=== PATIENT | female | born 1990 | race Caucasian/White ===

== ENCOUNTER 2016-10-01 15:19 | Emergency (ER) | payer BC ==
--- NOTE | 2016-10-01 17:19 | ED ORDER SUMMARY ---
..... Patient: RENEA GUTIÉRREZ OrderSheet [facility] VisitID: [id number] [address] [place] [address] 26y, F Registration Date/Time: 10/01/2016 ORDER SHEET Weight: 79.3 kg (stated) Allergies: Codeine GENERAL ORDERS: CBC w Diff Urgent (15:25 10/01/2016 EKoroleva P.A.-C) (Ack 15:29 NHouse ER Tech1) (15:42 KPage-Kuchan R.N.) CMP Urgent (15:25 10/01/2016 EKoroleva P.A.-C) (Ack 15:29 NHouse ER Tech1) (15:42 KPage-Kuchan R.N.) UA-Culture if indicated Urgent (15:10/01/2016 EKoroleva P.A.-C) (Ack 15:29 NHouse ER Tech1) (16:53 KPage-Kuchan R.N.) Urine Urgent (15:25 10/01/2016 EKoroleva P.A.-C) (Ack 15:29 NHouse ER Tech1) (16:53 KPage-Kuchan R.N.) MEDICATION ORDERS: KCl PO 20 meq (NOW) (16:10 10/01/2016 EKoroleva P.A.-C) (Ack 16:53 KPage-Kuchan R.N.) (17:56 KPage-Kuchan R.N.) IV FLUIDS: Zofran IV 4 mg (NOW) (15:24 10/01/2016 EKoroleva P.A.-C) (Cancelled: Other15:25 EKoroleva P.A.-C) IV Saline Lock (15:10/01/2016 EKoroleva P.A.-C) (15:54 KPage-Kuchan R.N.) Reglan IV 10 mg (NOW) (15:10/01/2016 EKoroleva P.A.-C) (15:52 KPage-Kuchan R.N.) Toradol IV 30 mg (NOW) (15:25 10/01/2016 EKoroleva P.A.-C) (15:53 Mark R.N.) Dilaudid IV 1 mg (HIGH ALERT MEDICATION, NOW) (15:25 10/01/2016 Ethan Ball.A.-C) (15:53 KPaTommie R.N.) Zofran IV 8 mg (NOW) (15:28 10/01/2016 Ethan Ball.Lizandro.-C) (15:52 KPaTommie R.N.) Dilaudid IV 1 mg (HIGH ALERT MEDICATION, NOW) (17:19 10/01/2016 Ethan Ball.A.-C) (17:56 KPaTommie R.N.) ORDER SHEET NOTES: [Electronically signed by Jaylyn Mccallum P.A.-C (18:41 10/01/2016)] [Electronically signed by Nemo Diaz R.N. (23:21 10/01/2016)] [Electronically locked/signed by Nemo Diaz R.N. (23:21 10/01/2016)]
--- NOTE | 2016-10-01 17:19 | ED ORDER SUMMARY ---
..... Patient: RENEA GUTIÉRREZ OrderSheet [facility] VisitID: [id number] [address] [place] [address] 26y, F Registration Date/Time: 10/01/2016 ORDER SHEET Weight: 79.3 kg (stated) Allergies: Codeine GENERAL ORDERS: CBC w Diff Urgent (15:25 10/01/2016 EKoroleva P.A.-C) (Ack 15:29 NHouse ER Tech1) (15:42 KPage-Kuchan R.N.) CMP Urgent (15:25 10/01/2016 EKoroleva P.A.-C) (Ack 15:29 NHouse ER Tech1) (15:42 KPage-Kuchan R.N.) UA-Culture if indicated Urgent (15:10/01/2016 EKoroleva P.A.-C) (Ack 15:29 NHouse ER Tech1) (16:53 KPage-Kuchan R.N.) Urine Urgent (15:25 10/01/2016 EKoroleva P.A.-C) (Ack 15:29 NHouse ER Tech1) (16:53 KPage-Kuchan R.N.) MEDICATION ORDERS: KCl PO 20 meq (NOW) (16:10 10/01/2016 EKoroleva P.A.-C) (Ack 16:53 KPage-Kuchan R.N.) (17:56 KPage-Kuchan R.N.) IV FLUIDS: Zofran IV 4 mg (NOW) (15:24 10/01/2016 EKoroleva P.A.-C) (Cancelled: Other15:25 EKoroleva P.A.-C) IV Saline Lock (15:10/01/2016 EKoroleva P.A.-C) (15:54 KPage-Kuchan R.N.) Reglan IV 10 mg (NOW) (15:10/01/2016 EKoroleva P.A.-C) (15:52 KPage-Kuchan R.N.) Toradol IV 30 mg (NOW) (15:25 10/01/2016 EKoroleva P.A.-C) (15:53 Mark R.N.) Dilaudid IV 1 mg (HIGH ALERT MEDICATION, NOW) (15:25 10/01/2016 Ethan Ball.A.-C) (15:53 KPaTommie R.N.) Zofran IV 8 mg (NOW) (15:28 10/01/2016 Ethan Ball.Lizandro.-C) (15:52 KPaTommie R.N.) Dilaudid IV 1 mg (HIGH ALERT MEDICATION, NOW) (17:19 10/01/2016 Ethan Ball.A.-C) (17:56 KPaTommie R.N.) ORDER SHEET NOTES: [Electronically signed by Jaylyn Mccallum P.A.-C (18:41 10/01/2016)] [Electronically signed by Nemo Diaz R.N. (23:21 10/01/2016)] [Electronically locked/signed by Nemo Diaz R.N. (23:21 10/01/2016)]
--- NOTE | 2016-10-01 17:19 | ED NURSING NOTES ---
Clinical Report - Nurses [facility] [address] [place] [address] 10/01/2016 15:20 Patient: RENEA GUTIÉRREZ TRIAGE Triage time 15:Oct 01 2016. Chief Complaint: (pt reports hx of renal stones, sudden onset of left flank pain at 1300 today, pt with emesis upon presentation). Alert. SEPSIS SCREEN: Sepsis Screen. Negative (no infection suspected/documented). --15:28 Nemo Diaz R.N. 15:24 10/01/16. BP: 130/63. HR: 52. RR: 19. O2 saturation: 100%. Temp: 97.8 F. Pain level now: 02/18. --15:28 Nemo Diaz R.N. Weight: 79.3 kg stated. Height/Length: 68 inches Per Patient. BMI: 26.6. --15:27 Nemo Diza R.N. Medications Oxycodone-Acetaminophen Oral. --15:26 Nemo Diaz R.N. Control Pills. --15:26 Nemo Diaz R.N. Zofran Oral. --15:26 Nemo Diaz R.N. Medication/allergy information source: the patient. --15:28 Nemo Diaz R.N. Allergies Codeine. --15:29 Nemo Diaz R.N. The following entry was struck by Nemo Diaz R.N., 15:29 (10/01/16) Reason - other. <<STRICKEN ENTRY-- No Known Drug Allergy. --15:26 Nemo Diaz R.N. --END STRIKE>>. History Arrived by private vehicle. Historian: patient. Accompanied by friend. Onset. (1300 PM). She has had nausea and vomiting. 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 PAST MEDICAL HX: Last normal menstrual period- now. SOCIAL HX: Never smoker. No alcohol use or drug use. 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 ABUSE ASSESSMENT: No report of abuse. SELF HARM ASSESSMENT: A self harm assessment was performed. The patient answered "no" to the question "Do you have thoughts of harming or killing yourself?". FALL RISK ASSESSMENT: Fall risk assessment completed. No fall risk identified. NUTRITIONAL RISK ASSESSMENT: The nutritional risk assessment revealed no deficiencies. FUNCTIONAL ASSESSMENT: Functional assessment: no impairments noted. LEARNING NEEDS ASSESSMENT: The learning needs assessment revealed no barriers. SKIN INTEGRITY ASSESSMENT: Skin integrity risk assessment completed. No skin integrity risk identified. --15:28 Nemo Diaz R.N. PROBLEMS: Ureterolithiasis. Renal Colic. --15:26 Nemo Diaz R.N. ADDITIONAL SURGERIES: Adenoidectomy. Foot fx repair. Tonsillectomy. --15:26 Nemo Diaz R.N. Interventions ID band on patient. --15:28 Nemo Diaz R.N. PHYSICAL ASSESSMENT To room via wheelchair. Patient gowned. GENERAL / NEURO / PSYCH: Alert. Oriented X 4. Appears in pain. HEENT: Mucous membranes are pink. RESPIRATORY: Respirations not labored. CVS: Capillary refill less than 2 seconds. SKIN: Skin is warm and dry. --15:29 Nemo Diaz R.N. NURSING PROGRESS NOTES Patient gowned. Head of bed elevated. Reassurance given. Patient identifiers checked. Call light placed in reach. Side rails up. Bed placed in lowest position. Brakes of bed on. --15:29 Nemo Diaz R.N. 15:31 10/01/2016 Reglan (Metoclopramide HCl) IVP 10 mg given. via site #1. Allergies verified and confirmed 5 rights. IV patency established. IV site checked: no pain, redness, or swelling. IV flushed thoroughly pre- and post-medication administration. IVP given by RN. --15:52 Nemo Diaz R.N. 15:34 10/01/2016 Zofran (Ondansetron HCl) IVP 8 mg given. via site #1. Allergies verified and confirmed 5 rights. IV patency established. IV site checked: no pain, redness, or swelling. IV flushed thoroughly pre- and post-medication administration. IVP given by RN. --15:52 Nemo Diaz R.N. 15:36 10/01/2016 Site #1 started via IV antecubital space with an 20g angiocath; one attempt. Blood drawn: rainbow set. Labeled in the presence of the patient and sent to the lab. Saline lock flushed with 10 mL saline. --15:51 Nemo Diaz R.N. 15:37 10/01/2016 Toradol IVP 30 mg given. via site #1. Allergies verified and confirmed 5 rights. IV patency established. IV site checked: no pain, redness, or swelling. IV flushed thoroughly pre- and post-medication administration. IVP given by RN. --15:53 Nemo Diaz R.N. 15:37 10/01/2016 Dilaudid (HYDROmorphone HCl PF) IVP 1 mg given. via site #1. Allergies verified, confirmed 5 rights and sedative warning given to the patient. IV patency established. IV site checked: no pain, redness, or swelling. IV flushed thoroughly pre- and post-medication administration. IVP given by RN. --15:53 Nemo Diaz R.N. 16:56 10/01/2016 KCL (Potassium Chloride ER) PO 20 meq given. Allergies verified and confirmed 5 rights. --17:56 Nemo Diaz R.N. 17:31 10/01/2016 Dilaudid (HYDROmorphone HCl PF) IVP 1 mg given. via site #1. Allergies verified, confirmed 5 rights and sedative warning given to the patient and patient's family. IV patency established. IV site checked: no pain, redness, or swelling. IV flushed thoroughly pre- and post-medication administration. --17:56 Nemo Diaz R.N. 17:46 10/01/2016 Site #1 removed upon discharge. Bandaid applied. --17:56 Nemo Diaz R.N. DISPOSITION / DISCHARGE No learning barriers present. Discharge instructions provided and reviewed with the patient and spouse. Reviewed medication(s) side effects and course information. Prescription(s) given to the patient. Patient and spouse verbalized understanding. Written instructions provided in Swedish. The patient was discharged by the nurse practitioner. She was discharged home and accompanied by spouse. She left the Emergency Department ambulatory and via private vehicle. Spouse driving. ( pt dc home, provided wc to car, pt with pain 2-07/19, provided crackers, cheese and gatorade to take with kcl,). --18:02 Nemo Diaz R.N. 18:00 10/01/16. BP: 114/67. HR: 49. RR: 17. O2 saturation: 99%. Temp: 98.1 F. Pain level now: 07/19. --18:02 Nemo Diaz R.N. Locked/Released at 10/01/2016 23:21 by Nemo Diaz R.N.
--- NOTE | 2016-10-01 17:19 | ED CLINICAL REPORT ---
Clinical Report - Physicians/Mid Levels [facility] [address] [place] [place] [address] 10/01/2016 15:20 Patient: RENEA GUTIÉRREZ Time Seen: 15:27 Oct 01 2016. Arrived- By private vehicle. HISTORY OF PRESENT ILLNESS Chief Complaint: FLANK PAIN. This started just prior to arrival and is still present. It is described as "pain" and it is described as located in the right flank. The patient has had nausea, loss of appetite and vomiting. (Sudden onset of sharp flank pain with associated nausea and vomiting since 1 PM. History of similar with prior nephrolithiasis. Patient currently on her menses. Patient denies any diarrhea, fevers, cough or chills. Denies any trauma.). No recent travel. REVIEW OF SYSTEMS No constipation, black stools, difficulty with urination, sore throat or blurred vision. All systems otherwise negative, except as recorded above. PAST HISTORY Problems: Ureterolithiasis. Renal Colic. Additional Surgeries: Adenoidectomy. Foot fx repair. Tonsillectomy. Medications: Zofran Oral. Control Pills. Oxycodone-Acetaminophen Oral. Allergies: No Known Drug Allergy. SOCIAL HISTORY Never smoker. No alcohol use or drug use. ADDITIONAL NOTES The nursing notes have been reviewed. PHYSICAL EXAM Vital Signs: 10/01/2016 15:24 BP: 130/63. HR: 52. RR: 19. O2 saturation: 100%. Temp: 97.8 F. Pain level now: 10/10. Appearance: Anxious. Appears to be in pain. Patient in severe distress. ENT: Nose normal. Pharynx normal. Neck: Normal inspection. CVS: Normal heart rate and rhythm. Heart sounds normal. Respiratory: No respiratory distress. Breath sounds normal. No decreased air movement. Abdomen: Soft and nontender. No abdominal tenderness. The bowel sounds are not abnormal. Back: Normal inspection. No CVA tenderness. Skin: Skin warm. Normal skin color. Neuro: Oriented X 3. LABS, X-RAYS, AND EKG Laboratory Tests: UA-Culture if indicated: (ASHLIE: 10/01/2016 16:23) ( MsgRcvd 10/01/2016 17:02) Final results Test Result Flag Units (Reference) URINE COLOR YELLOW URINE APPEARANCE CLEAR URINE GLUCOSE NEGATIVE (NEGATIVE) URINE BILIRUBIN NEGATIVE (NEGATIVE) URINE KETONE 1+ (NEGATIVE) URINE SPECIFIC GRAVITY 1.025 (1.010-1.030) URINE PH 7.0 (5.0-8.0) URINE PROTEIN 1+ (NEGATIVE) URINE UROBILINOGEN 1.0 EU/dL (0.2-1.0) URINE NITRITE NEGATIVE (NEGATIVE) URINE BLOOD 1+ (NEGATIVE) URINE LEUK ESTERASE NEGATIVE (NEGATIVE) URINE RBC 0-1 rbc/hpf (0-1) URINE WBC 0-1 wbc/hpf (0-1) URINE EPITHELIAL CELLS 0-1 EPI/hpf (0-5) URINE BACTERIA TRACE (<1+) (NONE SEEN) URINE COMMENT CULT NOT INDICATED 1+ MUCUSURINE CULTURES ARE SET-UP BASED ON THE FOLLOWING CRITERIA:POSITIVE NITRITEPOSITIVE LEUKOCYTE ESTERASEGREATER THAN 10 WHITE BLOOD CELLSMODERATE (2+) OR GREATER BACTERIA Urine: (ASHLIE: 10/01/2016 16:23) ( [facility] 10/01/2016 16:46) Final results Test Result Flag Units (Reference) URINE NEGATIVE CBC w Diff: (ASHLIE: 10/01/2016 15:30) ( [facility] 10/01/2016 15:46) Final results Test Result Flag Units (Reference) WHITE BLOOD COUNT 10.9 K/uL (4.5-11.5) RED BLOOD COUNT 5.30 H M/uL (4.00-5.20) HEMOGLOBIN 15.0 gm/dL (12.0-16.0) HEMATOCRIT 45.4 % (36.0-46.0) MEAN CELL VOLUME 86 fL (80-100) MEAN CORPUSCULAR HGB 28 pg (26-34) MEAN CORPUSCULAR HGB CONC 33 g/dL (31-37) RED CELL DISTRIBUTION WIDTH 14.2 % (11.6-14.8) PLATELET COUNT 204 K/uL (150-400) NEUTROPHIL % 78.4 H % (50-75) LYMPH % 16.7 L % (25-40) MONO % 4.3 % (3-14) EOSINOPHIL % 0.3 % (0-4) BASOPHIL % 0.3 % (0-2) CMP: (ASHLIE: 10/01/2016 15:30) ( MsgRcvd 10/01/2016 15:57) Final results Test Result Flag Units (Reference) GLUCOSE 104 mg/dL (70-110) BUN 10 mg/dL (7-18) CREATININE 1.2 mg/dL (0.6-1.3) Estimated GFR 56.85 mL/min Estimated GFR- >60 mL/min Note: Persistent reduction over 3 months in eGFR<60 mL/min/1.73 m2 defines CKD. Patients with eGFR values>=60 mL/min/1.73 m2 may also have CKD if evidence ofpersistent proteinuria. Additional information may be foundat www.kidney.org. SODIUM 136 mmol/L (136-145) POTASSIUM 3.2 L mmol/L (3.5-5.1) CHLORIDE 99 mmol/L (98-107) CARBON DIOXIDE 25 mmol/L (21-32) CALCIUM 9.0 mg/dL (8.5-10.1) TOTAL PROTEIN 8.1 g/dL (6.4-8.2) ALBUMIN 4.0 g/dL (3.3-5.0) BILIRUBIN, TOTAL 0.5 mg/dL (0.0-1.0) ALKALINE PHOSPHATASE 68 U/L (46-116) AST (SGOT) 30 U/L (15-37) ALT (SGPT) 31 U/L (12-78) . PROGRESS AND PROCEDURES Course of Care: Prior 2/3 mm nephrolithiasis Patient's symptoms most consistent with nephrolithiasis, no signs of any acute surgical abdomen. Patient with no signs of cystitis or pyelonephritis. Patient with a follow-up available for urology. Previous small nephrolithiasis which passed on their own, we'll treat for such as well as pain medications. Patient understands return precautions, need to follow-up. 10/01/2016 18:00 BP: 114/67. HR: 49. RR: 17. O2 saturation: 99%. Temp: 98.1 F. Pain level now: 07/19. Patient is stable. Symptoms better. Patient/family counseled. Disposition: Discharged. Condition: good. CLINICAL IMPRESSION Right renal colic. Hypokalemia INSTRUCTIONS Drink plenty of fluids. Prescription Medications: Zofran (orally disintegrating tablets) 4 mg: take 1 orally every 6 hours for 3 days as needed for nausea. Dispense ten (10). No refill. Substitution is permissible. Percocet 5 mg/325 mg: take 1 tablet orally every 6 hours as needed for pain. Dispense twenty (20). No refill. Substitution is permissible. Klor-Con 10 mEq: take 1 tablet orally. Dispense fifteen (15). No refills. Substitution is permissible. Flomax 0.4 mg: take 1 orally every 24 hours. Dispense ten (10). No refills. Substitution is permissible. Follow-up: Follow up with a specialist in three days. (Electronically signed by Jaylyn Mccallum P.A.-C 10/01/2016 18:41)
--- NOTE | 2016-10-01 23:21 | ED MAR SUMMARY ---
..... Medication Administration Record [facility] [address] [place] [address] Patient: RENEA GUTIÉRREZ Visit ID: [id number] 26y, F Weight: 79.3 kg Height/Length: 68 in BMI: 26.6 ALLERGIES: Codeine Given 15:31 10/01/2016 Nemo Diaz R.N. Medication Administered: REGLAN [IVP] (METOCLOPRAMIDE HCL), Dose: 10 mg IVP, Site: #1. Medication Ordered: Reglan IV 10 mg (NOW). Given 15:34 10/01/2016 Nemo Diaz R.N. Medication Administered: ZOFRAN [IVP] (ONDANSETRON HCL), Dose: 8 mg IVP, Site: #1. Medication Ordered: Zofran IV 8 mg (NOW). Given 15:37 10/01/2016 Nemo Diaz R.N. Medication Administered: TORADOL [IVP], Dose: 30 mg IVP, Site: #1 AC. Medication Ordered: Toradol IV 30 mg (NOW). Given 15:37 10/01/2016 Nemo Diaz R.N. Medication Administered: DILAUDID [IVP] (HYDROMORPHONE HCL PF), Dose: 1 mg IVP, Site: #1 AC. Medication Ordered: Dilaudid IV 1 mg (HIGH ALERT MEDICATION, NOW). Given 16:56 10/01/2016 Nemo Diaz R.N. Medication Administered: KCL [PO] (POTASSIUM CHLORIDE ER), Dose: 20 meq PO. Medication Ordered: KCl PO 20 meq (NOW). Given 17:31 10/01/2016 Nemo Diaz R.N. Medication Administered: DILAUDID [IVP] (HYDROMORPHONE HCL PF), Dose: 1 mg IVP, Site: #1 AC. Medication Ordered: Dilaudid IV 1 mg (HIGH ALERT MEDICATION, NOW).
--- NOTE | 2016-10-01 23:21 | ED DISCHARGE INSTRUCTIONS ---
Patient: RENEA GUTIÉRREZ General Instructions [facility] VisitID: [id number] [address] [place] [address] 26y, F Registration Date/Time: 10/01/2016 Right renal colic. Hypokalemia INSTRUCTIONS Drink plenty of fluids. Prescription Medications: Zofran (orally disintegrating tablets) 4 mg: take 1 orally every 6 hours for 3 days as needed for nausea. Dispense ten (10). No refill. Substitution is permissible. Percocet 5 mg/325 mg: take 1 tablet orally every 6 hours as needed for pain. Dispense twenty (20). No refill. Substitution is permissible. Klor-Con 10 mEq: take 1 tablet orally. Dispense fifteen (15). No refills. Substitution is permissible. Flomax 0.4 mg: take 1 orally every 24 hours. Dispense ten (10). No refills. Substitution is permissible. Follow-up: Follow up with a specialist in three days. ADDITIONAL INFORMATION Kidney Stone (W/ Colic) The sharp cramping pain and nausea/vomiting that you have is due to a small stone which has formed in the kidney and is now passing down a narrow tube (ureter) on its way to your bladder. Once it reaches your bladder, the pain will stop. The stone may pass in your urine stream in one piece. [The size may be 1/16" to 1/4" (1-6mm)]. Or, the stone may also break up into kirsten fragments which you may not even notice. Once you have had a kidney stone, you are at risk for developing another one in the future. Home Care: Drink plenty of fluids (at least 8 to 10 glasses of water a day). Most stones will pass on their own, but may take from a few hours to a few days. Sometimes the stone is too large to pass by itself and special methods will have to be used to remove the stone. Each time you urinate, do so in a jar. Pour the urine from the jar through the strainer and into the toilet. Continue doing this until 24 hours after your pain stops. By then, if there was a kidney stone, it should pass from your bladder. Some stones dissolve into sand-like particles and pass right through the strainer. In that case, you wont ever see a stone. Save any stone that you find in the strainer and bring it to your doctor for analysis. It may be possible to prevent certain types of stones from forming. Therefore, it is important to know what kind of stone you have. Try to stay as active as possible since this will help the stone pass. Do not stay in bed unless your pain prevents you from getting up. You may notice a red, pink or brown color to your urine. This is normal while passing a kidney stone. Follow Up with your doctor or return to this facility if the pain lasts more than 48 hours. Get Prompt Medical Attention if any of the following occur: Pain that is not controlled by the medicine given Repeated vomiting or unable to keep down fluids Weakness, dizziness or fainting Fever of 100.4F (38C) or higher, or as directed by your healthcare provider Passage of solid red or brown urine (can't see through it) or urine with lots of blood clots Unable to pass urine for 8 hours and increasing bladder pressure Blood In The Urine Blood in the urine ("hematuria") has many possible causes. If it occurs after an injury (such as a car accident or fall), it is most often a sign of bruising to the kidney or bladder. Common medical causes of blood in the urine include urinary tract infection, kidney stone, inflammation, tumors, or certain other diseases of the kidney or bladder. Menstruation can cause blood to appear in the urine sample, although it is not coming from the urinary tract. If only a trace amount of blood is present, it will show up on the urine test, even though the urine may be yellow and not pink or red. This may occur with any of the above conditions, as well as heavy exercise or high fever. In this case, your doctor may want to repeat the urine test on another day. This will show if the blood is still present. If so, then other tests can be done to find out the cause. Home Care: If your urine does not appear bloody (pink, brown or red) then you do not need to restrict your activity in any way. If you can see blood in your urine, rest and avoid heavy exertion until your next exam. Do not use aspirin or anti-inflammatory medicine like ibuprofen (Motrin, Advil) or naproxen (Naprosyn, Aleve). These thin the blood and may increase bleeding. Follow Up with your doctor or as advised by our staff. If you were injured and had blood in your urine, you should have a repeat urine test in 1-2 days. Contact your doctor or return to this facility for this test. [NOTE: A radiologist will review any X-rays that were taken. We will notify you of any new findings that may affect your care.] Get Prompt Medical Attention if any of the following occur: Bright red blood or blood clots in the urine (if a new symptom) Weakness, dizziness or fainting New groin, abdominal or back pain Fever of 100.4F (38C) or higher, or as directed by your healthcare provider Repeated vomiting Bleeding from nose, gums or easy bruising Hypokalemia Hypokalemia means a low level of potassium in the blood. This most often occurs in patients who take diuretics (water pills). It can also occur due to severe vomiting or diarrhea. A mild case usually causes no symptoms. It is only found with blood testing. More severe potassium loss causes generalized weakness, muscle or abdominal cramping, heart palpitations (rapid or irregular heartbeats) and low blood pressure. Home Care: 1) Take any potassium supplements prescribed. 2) Eat foods rich in potassium. The highest amount is found in artichoke, baked potatoes, spinach, cantaloupe, honeydew melon, cod, halibut, salmon, and scallops. White, red, or zheng beans are also very good sources. A modest amount is found in orange juice, bananas, carrots, and tomato juice. 3) Certain types of diuretics (water pills), such as Lasix (furosemide), require that you take potassium supplements for as long as you take the diuretic pills. If you are taking a diuretic, discuss the need for potassium supplements with your doctor. Follow Up with your doctor for a repeat blood test within the next week or as advised by our staff. Get Prompt Medical Attention if any of the following occur: -- Increased weakness -- Feeling dizzy -- Irregular heartbeat, extra beats or very fast heart rate -- Fainting spell Ondansetron Hydrochloride Oral tablet What is this medicine? ONDANSETRON (on VENKATA se tania) is used to treat nausea and vomiting caused by chemotherapy. It is also used to prevent or treat nausea and vomiting after surgery. How should I use this medicine? Take this medicine by mouth with a glass of water. Follow the directions on your prescription label. Take your doses at regular intervals. Do not take your medicine more often than directed. Talk to your mri technician regarding the use of this medicine in children. Special care may be needed. What side effects may I notice from receiving this medicine? Side effects that you should report to your doctor or health child care nurse as soon as possible: allergic reactions like skin rash, itching or hives, swelling of the face, lips or tongue breathing problems dizziness fast or irregular heartbeat feeling faint or lightheaded, falls fever and chills swelling of the hands or feet tightness in the chest Side effects that usually do not require medical attention (report to your doctor or health child care nurse if they continue or are bothersome): constipation or diarrhea headache What may interact with this medicine? Do not take this medicine with any of the following medications: -apomorphine -cisapride -dofetilide -dronedarone -pimozide -thioridazine -ziprasidone This medicine may also interact with the following medications: -carbamazepine -phenytoin -rifampicin -tramadol -other medicines that prolong the QT interval (cause an abnormal heart rhythm) What if I miss a dose? If you miss a dose, take it as soon as you can. If it is almost time for your next dose, take only that dose. Do not take double or extra doses. Where should I keep my medicine? Keep out of the reach of children. Store between 2 and 30 degrees C (36 and 86 degrees F). Throw away any unused medicine after the expiration date. What should I tell my health care provider before I take this medicine? They need to know if you have any of these conditions: heart disease history of irregular heartbeat liver disease low levels of magnesium or potassium in the blood an unusual or allergic reaction to ondansetron, granisetron, other medicines, foods, dyes, or preservatives or trying to get breast-feeding What should I watch for while using this medicine? Check with your doctor or health child care nurse right away if you have any sign of an allergic reaction. Oxycodone Hydrochloride, Acetaminophen Oral tablet What is this medicine? ACETAMINOPHEN; OXYCODONE (a set a DEANDRE jada fen; ox i KOE done) is a pain reliever. It is used to treat mild to moderate pain. How should I use this medicine? Take this medicine by mouth with a full glass of water. Follow the directions on the prescription label. Take your medicine at regular intervals. Do not take your medicine more often than directed. Talk to your mri technician regarding the use of this medicine in children. Special care may be needed. Patients over 65 years old may have a stronger reaction and need a smaller dose. What side effects may I notice from receiving this medicine? Side effects that you should report to your doctor or health child care nurse as soon as possible: allergic reactions like skin rash, itching or hives, swelling of the face, lips, or tongue breathing difficulties, wheezing confusion light headedness or fainting spells severe stomach pain yellowing of the skin or the whites of the eyes Side effects that usually do not require medical attention (report to your doctor or health child care nurse if they continue or are bothersome): dizziness drowsiness nausea vomiting What may interact with this medicine? alcohol antihistamines barbiturates like amobarbital, butalbital, butabarbital, methohexital, pentobarbital, phenobarbital, thiopental, and secobarbital benztropine drugs for bladder problems like solifenacin, trospium, oxybutynin, tolterodine, hyoscyamine, and methscopolamine drugs for breathing problems like ipratropium and tiotropium drugs for certain stomach or intestine problems like propantheline, homatropine methylbromide, glycopyrrolate, atropine, belladonna, and dicyclomine general anesthetics like etomidate, ketamine, nitrous oxide, propofol, desflurane, enflurane, halothane, isoflurane, and sevoflurane medicines for depression, anxiety, or psychotic disturbances medicines for sleep muscle relaxants naltrexone narcotic medicines (opiates) for pain phenothiazines like perphenazine, thioridazine, chlorpromazine, mesoridazine, fluphenazine, prochlorperazine, promazine, and trifluoperazine scopolamine tramadol trihexyphenidyl What if I miss a dose? If you miss a dose, take it as soon as you can. If it is almost time for your next dose, take only that dose. Do not take double or extra doses. Where should I keep my medicine? Keep out of the reach of children. This medicine can be abused. Keep your medicine in a safe place to protect it from theft. Do not share this medicine with anyone. Selling or giving away this medicine is dangerous and against the law. Store at room temperature between 20 and 25 degrees C (68 and 77 degrees F). Keep container tightly closed. Protect from light. This medicine may cause accidental overdose and if it is taken by other adults, children, or pets. Flush any unused medicine down the toilet to reduce the chance of harm. Do not use the medicine after the expiration date. What should I tell my health care provider before I take this medicine? They need to know if you have any of these conditions: brain tumor Crohn's disease, inflammatory bowel disease, or ulcerative colitis drink more than 3 alcohol containing drinks per day drug abuse or addiction head injury heart or circulation problems kidney disease or problems going to the bathroom liver disease lung disease, asthma, or breathing problems an unusual or allergic reaction to acetaminophen, oxycodone, other opioid analgesics, other medicines, foods, dyes, or preservatives or trying to get breast-feeding What should I watch for while using this medicine? Tell your doctor or health child care nurse if your pain does not go away, if it gets worse, or if you have new or a different type of pain. You may develop tolerance to the medicine. Tolerance means that you will need a higher dose of the medication for pain relief. Tolerance is normal and is expected if you take this medicine for a long time. Do not suddenly stop taking your medicine because you may develop a severe reaction. Your body becomes used to the medicine. This does NOT mean you are addicted. Addiction is a behavior related to getting and using a drug for a non-medical reason. If you have pain, you have a medical reason to take pain medicine. Your doctor will tell you how much medicine to take. If your doctor wants you to stop the medicine, the dose will be slowly lowered over time to avoid any side effects. You may get drowsy or dizzy. Do not drive, use machinery, or do anything that needs mental alertness until you know how this medicine affects you. Do not stand or sit up quickly, especially if you are an older patient. This reduces the risk of dizzy or fainting spells. Alcohol may interfere with the effect of this medicine. Avoid alcoholic drinks. There are different types of narcotic medicines (opiates) for pain. If you take more than one type at the same time, you may have more side effects. Give your health care provider a list of all medicines you use. Your doctor will tell you how much medicine to take. Do not take more medicine than directed. Call emergency for help if you have problems breathing. The medicine will cause constipation. Try to have a bowel movement at least every 2 to 3 days. If you do not have a bowel movement for 3 days, call your doctor or health child care nurse. Do not take Tylenol (acetaminophen) or medicines that have acetaminophen with this medicine. Too much acetaminophen can be very dangerous. Many nonprescription medicines contain acetaminophen. Always read the labels carefully to avoid taking more acetaminophen. You have been given the following additional information: Kidney Stone W/ Colic Hematuria Hypokalemia Ondansetron Hydrochloride Oral tablet Oxycodone Hydrochloride, Acetaminophen Oral tablet (Electronically signed by Jaylyn Mccallum P.A.-C 10/01/2016 18:41)
--- NOTE | 2016-10-01 23:21 | ED MAR SUMMARY ---
..... Medication Administration Record [facility] [address] [place] [address] Patient: RENEA GUTIÉRREZ Visit ID: [id number] 26y, F Weight: 79.3 kg Height/Length: 68 in BMI: 26.6 ALLERGIES: Codeine Given 15:31 10/01/2016 Nemo Diaz R.N. Medication Administered: REGLAN [IVP] (METOCLOPRAMIDE HCL), Dose: 10 mg IVP, Site: #1. Medication Ordered: Reglan IV 10 mg (NOW). Given 15:34 10/01/2016 Nemo Diaz R.N. Medication Administered: ZOFRAN [IVP] (ONDANSETRON HCL), Dose: 8 mg IVP, Site: #1. Medication Ordered: Zofran IV 8 mg (NOW). Given 15:37 10/01/2016 Nemo Diaz R.N. Medication Administered: TORADOL [IVP], Dose: 30 mg IVP, Site: #1 AC. Medication Ordered: Toradol IV 30 mg (NOW). Given 15:37 10/01/2016 Nemo Diaz R.N. Medication Administered: DILAUDID [IVP] (HYDROMORPHONE HCL PF), Dose: 1 mg IVP, Site: #1 AC. Medication Ordered: Dilaudid IV 1 mg (HIGH ALERT MEDICATION, NOW). Given 16:56 10/01/2016 Nemo Diaz R.N. Medication Administered: KCL [PO] (POTASSIUM CHLORIDE ER), Dose: 20 meq PO. Medication Ordered: KCl PO 20 meq (NOW). Given 17:31 10/01/2016 Nemo Diaz R.N. Medication Administered: DILAUDID [IVP] (HYDROMORPHONE HCL PF), Dose: 1 mg IVP, Site: #1 AC. Medication Ordered: Dilaudid IV 1 mg (HIGH ALERT MEDICATION, NOW).
--- NOTE | 2016-10-01 23:21 | ED MED RECONCILIATION SUMMARY ---
Patient: RENEA GUTIÉRREZ Medication Reconciliation Report [facility] VisitID: [id number] [address] [place] [address] 26y, F Registration Date/Time: 10/01/2016 Weight: 79.3 kg Height/Length: 68 in. BMI: 26.6 ALLERGIES: Codeine The patient's Home Medications are listed below: THE FOLLOWING MEDICATIONS NEED TO BE RECONCILED: Control Pills Oxycodone-Acetaminophen Oral Zofran Oral The source(s) of the original Home Medication information: patient The following Medications were given to the patient in the Emergency Department: Zofran [IVP] IVP 8 mg, administered: 10/01/2016 3:34:00 PM Reglan [IVP] IVP 10 mg, administered: 10/01/2016 3:31:00 PM Toradol [IVP] IVP 30 mg, administered: 10/01/2016 3:37:00 PM Dilaudid [IVP] IVP 1 mg, administered: 10/01/2016 3:37:00 PM KCL [PO] PO 20 meq, administered: 10/01/2016 4:56:00 PM Dilaudid [IVP] IVP 1 mg, administered: 10/01/2016 5:31:00 PM The following Medications were prescribed to the patient: Zofran (orally disintegrating tablets) 4 mg: take 1 orally every 6 hours for 3 days as needed for nausea. Dispense ten (10). No refill. Substitution is permissible. -- Jaylyn Mccallum, P.A.-C Percocet 5 mg/325 mg: take 1 tablet orally every 6 hours as needed for pain. Dispense twenty (20). No refill. Substitution is permissible. -- Jaylyn Mccallum, P.A.-C Klor-Con 10 mEq: take 1 tablet orally. Dispense fifteen (15). No refills. Substitution is permissible. -- Jaylyn Mccallum, P.A.-C Flomax 0.4 mg: take 1 orally every 24 hours. Dispense ten (10). No refills. Substitution is permissible. -- Jaylyn Mccallum, P.A.-C
--- NOTE | 2016-10-01 23:21 | ED MED RECONCILIATION SUMMARY ---
Patient: RENEA GUTIÉRREZ Medication Reconciliation Report [facility] VisitID: [id number] [address] [place] [address] 26y, F Registration Date/Time: 10/01/2016 Weight: 79.3 kg Height/Length: 68 in. BMI: 26.6 ALLERGIES: Codeine The patient's Home Medications are listed below: THE FOLLOWING MEDICATIONS NEED TO BE RECONCILED: Control Pills Oxycodone-Acetaminophen Oral Zofran Oral The source(s) of the original Home Medication information: patient The following Medications were given to the patient in the Emergency Department: Zofran [IVP] IVP 8 mg, administered: 10/01/2016 3:34:00 PM Reglan [IVP] IVP 10 mg, administered: 10/01/2016 3:31:00 PM Toradol [IVP] IVP 30 mg, administered: 10/01/2016 3:37:00 PM Dilaudid [IVP] IVP 1 mg, administered: 10/01/2016 3:37:00 PM KCL [PO] PO 20 meq, administered: 10/01/2016 4:56:00 PM Dilaudid [IVP] IVP 1 mg, administered: 10/01/2016 5:31:00 PM The following Medications were prescribed to the patient: Zofran (orally disintegrating tablets) 4 mg: take 1 orally every 6 hours for 3 days as needed for nausea. Dispense ten (10). No refill. Substitution is permissible. -- Jaylyn Mccallum, P.A.-C Percocet 5 mg/325 mg: take 1 tablet orally every 6 hours as needed for pain. Dispense twenty (20). No refill. Substitution is permissible. -- Jaylyn Mccallum, P.A.-C Klor-Con 10 mEq: take 1 tablet orally. Dispense fifteen (15). No refills. Substitution is permissible. -- Jaylyn Mccallum, P.A.-C Flomax 0.4 mg: take 1 orally every 24 hours. Dispense ten (10). No refills. Substitution is permissible. -- Jaylyn Mccallum, P.A.-C
== END 2016-10-01 17:49 | disposition home or self-care (01) ==
LOC: ED SRH 15:19
DX: N23 Unspecified renal colic (principal); E87.6 Hypokalemia; Z87.442 Personal history of urinary calculi; Z88.5 Allergy status to narcotic agent
CPT/HCPCS: 90004; 90100; 93070; 95059

== ENCOUNTER 2016-10-03 08:08 | Emergency (ER) | payer BC ==
--- NOTE | 2016-10-03 09:08 | DIAGNOSTIC IMAGING REPORT ---
PROCEDURE: CT ABDOMEN/PELVIS W/O CONTRAST INDICATION: Left flank pain, initial encounter. TECHNIQUE: Noncontrast axial images were obtained of the entire abdomen and pelvis with sagittal and coronal reformations. COMPARISON: CT abdomen/pelvis 04/05/2016. FINDINGS: ABDOMEN: 2 mm left UVJ calculus with mild left hydroureteronephrosis. No additional urinary calculi. Lung base are clear. Heart size is normal. Liver, gallbladder, pancreas, spleen and adrenal glands are normal. Normal abdominal aorta. PELVIS: Normal appendix. Tampon in place. Uterus, adnexa and bladder are normal. Small amount of free fluid the pelvis. Mild degenerative changes of the spine. IMPRESSION: 1. 2 mm left UVJ calculus with mild left hydroureteronephrosis 2. Small amount of free fluid in the pelvis, likely from an occult ruptured ovarian cyst. All CT scans at this facility use dose modulation, iterative reconstruction, and/or weight-based dosing when appropriate to reduce radiation dose to as low as reasonably achievable.
--- NOTE | 2016-10-03 09:21 | ED NURSING NOTES ---
Clinical Report - [facility] [address] [place] [place] [address] 10/03/2016 8:08 Patient: RENEA GUTIÉRREZ TRIAGE Triage time 08:Oct 03 2016. Acuity: LEVEL 3. Chief Complaint: ABDOMINAL PAIN. --08:19 Harriet Godinez R.N. 08:14 10/03/16. BP: 130/82. HR: 42. RR: 18. O2 saturation: 99%. Temp: 97.9 F. Pain level now: 01/19. --08:19 Harriet Godinez R.N. Weight: 79.3 kg stated. Height/Length: 68 inches Per Patient. BMI: 26.6. --08:19 Harriet Godinez R.N. Medications Oxycodone PRN. --08:17 Harriet Godinez R.N. Flomax 0.4 mg daily. --08:18 Harriet Godinez R.N. Unknown antinausea med. --08:18 Harriet Godinez R.N. Allergies Codeine. --08:17 Harriet Godinez R.N. History Arrived by private vehicle. Historian: patient. Accompanied by family. Onset. (3 days ago). ( Left-sided flank pain radiating around to the front of the abdomen. Dx with presumed kidney stone here 2 days ago.). She has had nausea, vomiting and abdominal pain. ( Given oxycodone here Friday, last taken at 0430 this morning without relief.). Treatment ACCESS RN: (oxycodone at 0430). SOCIAL HX: Never smoker. No alcohol use or drug use. No recent travel. 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 --08:19 Harriet Godinez R.N. PROBLEMS: Hypokalemia. Ureterolithiasis. Renal Colic. --08:18 Harriet Godinez R.N. ADDITIONAL SURGERIES: Adenoidectomy. Foot fx repair. Tonsillectomy. --08:18 Harriet Godinez R.N. Interventions ID band on patient. To treatment room. --08:19 Harriet Godinez R.N. PHYSICAL ASSESSMENT GENERAL / NEURO / PSYCH: Alert. Oriented X 4. Appears in pain, anxious and in distress. RESPIRATORY: Respirations not labored. CVS: Normal sinus rhythm noted. GI / : Abdominal tenderness (Left flank radiating around to mid abdomen). Bowel sounds within normal limits. SKIN: Skin is warm and dry. --08:43 Leticia Keane R.N. NURSING PROGRESS NOTES 08:20 10/03/2016 Site #1 started via IV in the left antecubital space with an 20g angiocath; one attempt. Blood drawn: rainbow set. Saline lock flushed with 10 mL saline. --08:20 Harriet Godinez R.N. Pulse oximeter and NIBP monitor placed on patient. Patient gowned. Call light placed in reach. Side rails up x 1. Bed placed in lowest position. Patient waiting for evaluation. --08:20 Harriet Godinez R.N. 08:36 10/03/2016 Zofran (Ondansetron HCl) IVP 8 mg given over 2 minute(s) via site #1. IV patency established. IV site checked: no pain, redness, or swelling. IV flushed thoroughly pre- and post-medication administration. --08:36 Leticia Keane R.N. 08:37 10/03/2016 Started IV Fluids IV NS (Saline); bolus of 1000 mL over 1 hour(s) via site #1 --08:37 Leticia Keane R.N. 08:37 10/03/2016 Dilaudid (HYDROmorphone HCl PF) IVP 1 mg given over 2 minute(s) via site #1. IV patency established. IV site checked: no pain, redness, or swelling. IV flushed thoroughly pre- and post-medication administration. --08:37 Leticia Keane R.N. 08:37 10/03/2016 Toradol IVP 30 mg given over 2 minute(s) via site #1. IV patency established. IV site checked: no pain, redness, or swelling. IV flushed thoroughly pre- and post-medication administration. --08:37 Leticia Keane R.N. ( Pt. out to CT.). --08:42 Leticia Keane R.N. DISPOSITION / DISCHARGE <<STRICKEN ENTRY-- 09:29 10/03/16. BP: 153/90. HR: 84. RR: 16. O2 saturation: 97%. Temp: 98 F. Pain level now: 10/19. --09:30 Leticia Keane R.N. --END STRIKE>> Charted on wrong patient. --09:44 Leticia Keane R.N. <<STRICKEN ENTRY-- No learning barriers present. Discharge instructions provided and reviewed with the patient. Reviewed medication(s) side effects information. Prescription(s) given to the patient. Reviewed referral to a linker up. Patient verbalized understanding. Written instructions provided in Sinhala. The patient was discharged home and accompanied by spouse. She left the Emergency Department ambulatory and via private vehicle. Spouse driving. --09:30 Leticia Keane R.N. --END STRIKE>> Charted On Wrong Patient --09:43 Leticia Keane R.N. 09:40 10/03/16. BP: 127/71. HR: 48. RR: 18. O2 saturation: 97%. Temp: 98 F. Pain level now 05/21. --09:42 Harriet Godinez R.N. Departure time: :Oct 03 2016. Condition at departure: improved. No learning barriers present. Discharge instructions provided and reviewed with the patient and spouse. Reviewed warnings. Reviewed medication(s). Treatments reviewed. Reviewed referrals. Patient and spouse verbalized understanding. Written instructions provided in Sinhala. The patient was discharged home and accompanied by parent. She left the Emergency Department ambulatory and via private vehicle. Parent driving. --09:42 Harriet Godinez R.N. 09:33 10/03/2016 Site #1 removed upon discharge. Catheter intact. Pressure dressing applied. --09:43 Harriet Godinez R.N. Locked/Released at 10/08/2016 12:59 by eMeta Martinez R.N.
--- NOTE | 2016-10-03 09:21 | ED ORDER SUMMARY ---
..... Patient: RENEA GUTIÉRREZ OrderSheet [facility] VisitID: [id number] [address] [place] [address] 26y, F Registration Date/Time: 10/03/2016 ORDER SHEET Weight: 79.3 kg (stated) Allergies: Codeine GENERAL ORDERS: CT Abd/Pel wo Cont Urgent (08:10/03/2016 Oanh TSAI) (Ack 8:34 Doyle) (8:49 Doyle) MEDICATION ORDERS: IV FLUIDS: IV NS : initial bolus 1000 mL (1000 mL/hr), then none - (NOW) (08:10/03/2016 Oanh TSAI) (8:37 SStone R.N.) Toradol IV 30 mg (NOW) (:10/03/2016 Oanh TSAI) (8:37 SStone R.N.) Dilaudid IV 1 mg (HIGH ALERT MEDICATION, NOW) (08:10/03/2016 Oanh TSAI) (8:37 SStone R.N.) Zofran IV 8 mg (NOW) (08:10/03/2016 Oanh TSAI) (8:36 SStone R.N.) ORDER SHEET NOTES: [Electronically signed by Jolynn Randhawa MD (15:10 10/07/2016)] [Electronically signed by Meeta Martinez R.N. (12:59 10/08/2016)] [Electronically locked/signed by Meeta Martinez R.N. (12:59 10/08/2016)]
--- NOTE | 2016-10-03 09:21 | ED NURSING NOTES ---
Clinical Report - Nurses [facility] [address] [place] [place] [address] 10/03/2016 8:08 Patient: RENEA GUTIÉRREZ TRIAGE Triage time 08:Oct 03 2016. Acuity: LEVEL 3. Chief Complaint: ABDOMINAL PAIN. --08:19 Harriet Godinez R.N. 08:14 10/03/16. BP: 130/82. HR: 42. RR: 18. O2 saturation: 99%. Temp: 97.9 F. Pain level now: 01/19. --08:19 Harriet Godinez R.N. Weight: 79.3 kg stated. Height/Length: 68 inches Per Patient. BMI: 26.6. --08:19 Harriet Godinez R.N. Medications Oxycodone PRN. --08:17 Harriet Godinez R.N. Flomax 0.4 mg daily. --08:18 Harriet Godinez R.N. Unknown antinausea med. --08:18 Harriet Godinez R.N. Allergies Codeine. --08:17 Harriet Godinez R.N. History Arrived by private vehicle. Historian: patient. Accompanied by family. Onset. (3 days ago). ( Left-sided flank pain radiating around to the front of the abdomen. Dx with presumed kidney stone here 2 days ago.). She has had nausea, vomiting and abdominal pain. ( Given oxycodone here Friday, last taken at 0430 this morning without relief.). Treatment NURSE GENERAL DUTY: (oxycodone at 0430). SOCIAL HX: Never smoker. No alcohol use or drug use. No recent travel. 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 --08:19 Harriet Godinez R.N. PROBLEMS: Hypokalemia. Ureterolithiasis. Renal Colic. --08:18 Harriet Godinez R.N. ADDITIONAL SURGERIES: Adenoidectomy. Foot fx repair. Tonsillectomy. --08:18 Harriet Godinez R.N. Interventions ID band on patient. To treatment room. --08:19 Harriet Godinez R.N. PHYSICAL ASSESSMENT GENERAL / NEURO / PSYCH: Alert. Oriented X 4. Appears in pain, anxious and in distress. RESPIRATORY: Respirations not labored. CVS: Normal sinus rhythm noted. GI / : Abdominal tenderness (Left flank radiating around to mid abdomen). Bowel sounds within normal limits. SKIN: Skin is warm and dry. --08:43 Leticia Keane R.N. NURSING PROGRESS NOTES 08:20 10/03/2016 Site #1 started via IV in the left antecubital space with an 20g angiocath; one attempt. Blood drawn: rainbow set. Saline lock flushed with 10 mL saline. --08:20 Harriet Godinez R.N. Pulse oximeter and NIBP monitor placed on patient. Patient gowned. Call light placed in reach. Side rails up x 1. Bed placed in lowest position. Patient waiting for evaluation. --08:20 Harriet Godinez R.N. 08:36 10/03/2016 Zofran (Ondansetron HCl) IVP 8 mg given over 2 minute(s) via site #1. IV patency established. IV site checked: no pain, redness, or swelling. IV flushed thoroughly pre- and post-medication administration. --08:36 Leticia Keane R.N. 08:37 10/03/2016 Started IV Fluids IV NS (Saline); bolus of 1000 mL over 1 hour(s) via site #1 --08:37 Leticia Keane R.N. 08:37 10/03/2016 Dilaudid (HYDROmorphone HCl PF) IVP 1 mg given over 2 minute(s) via site #1. IV patency established. IV site checked: no pain, redness, or swelling. IV flushed thoroughly pre- and post-medication administration. --08:37 Leticia Keane R.N. 08:37 10/03/2016 Toradol IVP 30 mg given over 2 minute(s) via site #1. IV patency established. IV site checked: no pain, redness, or swelling. IV flushed thoroughly pre- and post-medication administration. --08:37 Leticia Keane R.N. ( Pt. out to CT.). --08:42 Leticia Keane R.N. DISPOSITION / DISCHARGE <<STRICKEN ENTRY-- 09:29 10/03/16. BP: 153/90. HR: 84. RR: 16. O2 saturation: 97%. Temp: 98 F. Pain level now: 10/19. --09:30 Leticia Keane R.N. --END STRIKE>> Charted on wrong patient. --09:44 Leticia Keane R.N. <<STRICKEN ENTRY-- No learning barriers present. Discharge instructions provided and reviewed with the patient. Reviewed medication(s) side effects information. Prescription(s) given to the patient. Reviewed referral to a qa auditor. Patient verbalized understanding. Written instructions provided in Nepali. The patient was discharged home and accompanied by spouse. She left the Emergency Department ambulatory and via private vehicle. Spouse driving. --09:30 Leticia Keane R.N. --END STRIKE>> Charted On Wrong Patient --09:43 Leticia Keane R.N. 09:40 10/03/16. BP: 127/71. HR: 48. RR: 18. O2 saturation: 97%. Temp: 98 F. Pain level now 05/21. --09:42 Harriet Godinez R.N. Departure time: :Oct 03 2016. Condition at departure: improved. No learning barriers present. Discharge instructions provided and reviewed with the patient and spouse. Reviewed warnings. Reviewed medication(s). Treatments reviewed. Reviewed referrals. Patient and spouse verbalized understanding. Written instructions provided in Nepali. The patient was discharged home and accompanied by parent. She left the Emergency Department ambulatory and via private vehicle. Parent driving. --09:42 Harriet Godinez R.N. 09:33 10/03/2016 Site #1 removed upon discharge. Catheter intact. Pressure dressing applied. --09:43 Harriet Godinez R.N. Locked/Released at 10/08/2016 12:59 by Meeta Martinez R.N.
--- NOTE | 2016-10-03 09:21 | ED CLINICAL REPORT ---
Clinical Report - Physicians/Mid Levels [facility] [address] [place] [address] 10/03/2016 8:08 Patient: RENEA GUTIÉRREZ Time Seen: 08:21. Arrived- By private vehicle. Historian- patient. HISTORY OF PRESENT ILLNESS Chief Complaint: FLANK PAIN and VOMITING. At its maximum, severity described as severe. When seen in the E.D., severity described as severe. Modifying factors. Not worsened by anything. Not relieved by anything. This started 3 days ago and is still present. It is described as "pain" and it is described as located in the left lower quadrant and the left flank. The patient has had nausea and vomiting. No diarrhea. Similar symptoms previously: ( Patient has a history of kidney stones.). Recent medical care: The patient was seen recently at this facility in the emergency department. REVIEW OF SYSTEMS No constipation, black stools, hematemesis, difficulty with urination or pain with urination. No urinary frequency, bloody stools, fever, headache or sore throat. No blurred vision, chest pain, difficulty breathing, cough or joint pain. No skin rash or chills. Denies current . The patient has had moderate back pain (left CVA area). All systems otherwise negative, except as recorded above. PAST HISTORY Problems: Hypokalemia. Ureterolithiasis. Renal Colic. Additional Surgeries: Adenoidectomy. Foot fx repair. Tonsillectomy. Medications: Unknown antinausea med. Flomax 0.4 mg daily. Oxycodone PRN. Allergies: Codeine. SOCIAL HISTORY Never smoker. No alcohol use or drug use. ADDITIONAL NOTES The nursing notes have been reviewed. PHYSICAL EXAM Vital Signs: 10/03/2016 08:14 BP: 130/82. HR: 42. RR: 18. O2 saturation: 99%. Temp: 97.9 F. Pain level now: 9/10. Have been reviewed. Appearance: Alert. Patient in moderate distress. Distress appears due to pain. (Patient is grossly oriented.). Eyes: Eyes normal inspection. ENT: Nose normal. Neck: Normal inspection. CVS: Normal heart rate and rhythm. Heart sounds normal. Pulses normal. Respiratory: No respiratory distress. Breath sounds normal. Abdomen: Soft. Moderate tenderness (Left flank). No guarding or rebound tenderness. Back: Mild CVA tenderness on the left. Skin: Skin warm and dry. Normal skin color. No rash. Normal skin turgor. Extremities: Extremities exhibit normal ROM. No lower extremity edema. Neuro: (Grossly intact.). LABS, X-RAYS, AND EKG Abdominal CT: Normal aorta. Normal liver, spleen, pancreas, gallbladder and adrenals. A single urinary calculus is present in the left distal ureter. There is mild obstruction. Uterus normal. Adnexa normal. Bladder normal. Appendix normal. No mass. No free fluid. No bony lesion. No diverticulitis. Study type: renal stone evaluation; abdomen and pelvis. Abdominal CT performed without contrast. The study was independently viewed by me, interpreted by the radiologist and contemporaneously by me and discussed with the radiologist. Prior studies were not available for comparison. Pulse Oximetry: 10/03/2016 08:14 O2 saturation: 99%. (FIO2 - room air). Interpretation: normal. PROGRESS AND PROCEDURES Course of Care: Patient was given IV fluids Toradol and Dilaudid and Zofran for symptomatic relief. I did review the records from her recent visit to our emergency department, at which time she had a noninfected urine, a negative test, and unremarkable laboratory studies. She does not have a CT at that time although she had had one back in March 2016. As her pain got worse despite attempts at home management, however, I did decide to go ahead and repeat her CT scan today in the emergency department. This did show a 2 mm stone at the UVJ. I did advise her that her stone has almost passed, and is of a size which is very likely to pass well on its own. Pt was feeling much better after symptomatic treatment. Patient counseled in person regarding the patient's stable condition, test results, diagnosis and need for follow-up. Concerns were addressed. Old medical records reviewed. Disposition: Discharged. Condition: stable and improved. CLINICAL IMPRESSION Ureterolithiasis (single stone) in the left ureter with renal colic. INSTRUCTIONS Drink plenty of fluids. Warnings: GENERAL WARNINGS: Return or contact your physician immediately if your condition worsens or changes unexpectedly, if not improving as expected, or if other problems arise. Your Current Medications: CONTINUE TAKING THE FOLLOWING MEDICATIONS: Flomax 0.4 mg daily*. Oxycodone PRN*. Unknown antinausea med*. Follow-up: Follow up with your doctor in five days if not better. Understanding of the discharge instructions verbalized by patient. (Electronically signed by Jolynn Randhawa MD 10/07/2016 15:10)
--- NOTE | 2016-10-03 09:21 | ED ORDER SUMMARY ---
..... Patient: RENEA GUTIÉRREZ OrderSheet [facility] VisitID: [id number] [address] [place] [address] 26y, F Registration Date/Time: 10/03/2016 ORDER SHEET Weight: 79.3 kg (stated) Allergies: Codeine GENERAL ORDERS: CT Abd/Pel wo Cont Urgent (08:10/03/2016 Oanh TSAI) (Ack 8:34 Doyle) (8:49 Doyle) MEDICATION ORDERS: IV FLUIDS: IV NS : initial bolus 1000 mL (1000 mL/hr), then none - (NOW) (08:10/03/2016 Oanh TSAI) (8:37 SStone R.N.) Toradol IV 30 mg (NOW) (:10/03/2016 Oanh TSAI) (8:37 SStone R.N.) Dilaudid IV 1 mg (HIGH ALERT MEDICATION, NOW) (08:10/03/2016 Oanh TSAI) (8:37 SStone R.N.) Zofran IV 8 mg (NOW) (08:10/03/2016 Oanh TSAI) (8:36 SStone R.N.) ORDER SHEET NOTES: [Electronically signed by Jolynn Randhawa MD (15:10 10/07/2016)] [Electronically signed by Meeta Martinez R.N. (12:59 10/08/2016)] [Electronically locked/signed by Meeta Martinez R.N. (12:59 10/08/2016)]
--- NOTE | 2016-10-08 12:59 | ED MAR SUMMARY ---
..... Medication Administration Record [facility] [address] [place] [address] Patient: RENEA GUTIÉRREZ Visit ID: [id number] 26y, F Weight: 79.3 kg Height/Length: 68 in BMI: 26.6 ALLERGIES: Codeine Given 08:36 10/03/2016 Leticia Keane R.N. Medication Administered: ZOFRAN [IVP] (ONDANSETRON HCL), Dose: 8 mg IVP over 2 minute(s), Site: #1 left AC. Medication Ordered: Zofran IV 8 mg (NOW). Start 08:10/03/2016 Leticia Keane R.N. Medication Administered: IV NS (SALINE), Dose: IV Fluids, Bolus: 1000 mL over 1 hour(s), Site: #1 left AC. Medication Ordered: IV NS : initial bolus 1000 mL (1000 mL/hr), then none - (NOW). Given 08:10/03/2016 Leticia Keane R.N. Medication Administered: TORADOL [IVP], Dose: 30 mg IVP over 2 minute(s), Site: #1 left AC. Medication Ordered: Toradol IV 30 mg (NOW). Given 08:10/03/2016 Leticia Keane R.N. Medication Administered: DILAUDID [IVP] (HYDROMORPHONE HCL PF), Dose: 1 mg IVP over 2 minute(s), Site: #1 left AC. Medication Ordered: Dilaudid IV 1 mg (HIGH ALERT MEDICATION, NOW).
--- NOTE | 2016-10-08 12:59 | ED MED RECONCILIATION SUMMARY ---
Patient: RENEA GUTIÉRREZ Medication Reconciliation Report [facility] VisitID: [id number] [address] [place] [address] 26y, F Registration Date/Time: 10/03/2016 Weight: 79.3 kg Height/Length: 68 in. BMI: 26.6 ALLERGIES: Codeine The patient's Home Medications are listed below: CONTINUE TAKING THE FOLLOWING MEDICATIONS: Flomax 0.4 mg daily Oxycodone PRN Unknown antinausea med The source(s) of the original Home Medication information: Not obtained. The following Medications were given to the patient in the Emergency Department: Zofran [IVP] IVP 8 mg, administered: 10/03/2016 8:36:00 AM IV NS IV Fluids bolus 1000 mL over 1 hour(s), administered: 10/03/2016 8:37:00 AM Dilaudid [IVP] IVP 1 mg, administered: 10/03/2016 8:37:00 AM Toradol [IVP] IVP 30 mg, administered: 10/03/2016 8:37:00 AM The following Medications were prescribed to the patient: None.
--- NOTE | 2016-10-08 12:59 | ED MED RECONCILIATION SUMMARY ---
Patient: RENEA GUTIÉRREZ Medication Reconciliation Report [facility] VisitID: [id number] [address] [place] [address] 26y, F Registration Date/Time: 10/03/2016 Weight: 79.3 kg Height/Length: 68 in. BMI: 26.6 ALLERGIES: Codeine The patient's Home Medications are listed below: CONTINUE TAKING THE FOLLOWING MEDICATIONS: Flomax 0.4 mg daily Oxycodone PRN Unknown antinausea med The source(s) of the original Home Medication information: Not obtained. The following Medications were given to the patient in the Emergency Department: Zofran [IVP] IVP 8 mg, administered: 10/03/2016 8:36:00 AM IV NS IV Fluids bolus 1000 mL over 1 hour(s), administered: 10/03/2016 8:37:00 AM Dilaudid [IVP] IVP 1 mg, administered: 10/03/2016 8:37:00 AM Toradol [IVP] IVP 30 mg, administered: 10/03/2016 8:37:00 AM The following Medications were prescribed to the patient: None.
--- NOTE | 2016-10-08 12:59 | ED MAR SUMMARY ---
..... Medication Administration Record [facility] [address] [place] [address] Patient: RENEA GUTIÉRREZ Visit ID: [id number] 26y, F Weight: 79.3 kg Height/Length: 68 in BMI: 26.6 ALLERGIES: Codeine Given 08:36 10/03/2016 eLticia Keane R.N. Medication Administered: ZOFRAN [IVP] (ONDANSETRON HCL), Dose: 8 mg IVP over 2 minute(s), Site: #1 left AC. Medication Ordered: Zofran IV 8 mg (NOW). Start 08:10/03/2016 Leticia Keane R.N. Medication Administered: IV NS (SALINE), Dose: IV Fluids, Bolus: 1000 mL over 1 hour(s), Site: #1 left AC. Medication Ordered: IV NS : initial bolus 1000 mL (1000 mL/hr), then none - (NOW). Given 08:10/03/2016 Leticia Keane R.N. Medication Administered: TORADOL [IVP], Dose: 30 mg IVP over 2 minute(s), Site: #1 left AC. Medication Ordered: Toradol IV 30 mg (NOW). Given 08:10/03/2016 Leticia Keane R.N. Medication Administered: DILAUDID [IVP] (HYDROMORPHONE HCL PF), Dose: 1 mg IVP over 2 minute(s), Site: #1 left AC. Medication Ordered: Dilaudid IV 1 mg (HIGH ALERT MEDICATION, NOW).
--- NOTE | 2016-10-08 12:59 | ED DISCHARGE INSTRUCTIONS ---
Patient: RENEA GUTIÉRREZ General Instructions [facility] VisitID: [id number] [place] [address] 26y, F Registration Date/Time: 10/03/2016 Ureterolithiasis (single stone) in the left ureter with renal colic. INSTRUCTIONS Drink plenty of fluids. Warnings: GENERAL WARNINGS: Return or contact your physician immediately if your condition worsens or changes unexpectedly, if not improving as expected, or if other problems arise. Your Current Medications: CONTINUE TAKING THE FOLLOWING MEDICATIONS: Flomax 0.4 mg daily*. Oxycodone PRN*. Unknown antinausea med*. Follow-up: Follow up with your doctor in five days if not better. Understanding of the discharge instructions verbalized by patient. ADDITIONAL INFORMATION Kidney Stone (W/ Colic) The sharp cramping pain and nausea/vomiting that you have is due to a small stone which has formed in the kidney and is now passing down a narrow tube (ureter) on its way to your bladder. Once it reaches your bladder, the pain will stop. The stone may pass in your urine stream in one piece. [The size may be 1/16" to 1/4" (1-6mm)]. Or, the stone may also break up into kirsten fragments which you may not even notice. Once you have had a kidney stone, you are at risk for developing another one in the future. Home Care: Drink plenty of fluids (at least 8 to 10 glasses of water a day). Most stones will pass on their own, but may take from a few hours to a few days. Sometimes the stone is too large to pass by itself and special methods will have to be used to remove the stone. Each time you urinate, do so in a jar. Pour the urine from the jar through the strainer and into the toilet. Continue doing this until 24 hours after your pain stops. By then, if there was a kidney stone, it should pass from your bladder. Some stones dissolve into sand-like particles and pass right through the strainer. In that case, you wont ever see a stone. Save any stone that you find in the strainer and bring it to your doctor for analysis. It may be possible to prevent certain types of stones from forming. Therefore, it is important to know what kind of stone you have. Try to stay as active as possible since this will help the stone pass. Do not stay in bed unless your pain prevents you from getting up. You may notice a red, pink or brown color to your urine. This is normal while passing a kidney stone. Follow Up with your doctor or return to this facility if the pain lasts more than 48 hours. Get Prompt Medical Attention if any of the following occur: Pain that is not controlled by the medicine given Repeated vomiting or unable to keep down fluids Weakness, dizziness or fainting Fever of 100.4F (38C) or higher, or as directed by your healthcare provider Passage of solid red or brown urine (can't see through it) or urine with lots of blood clots Unable to pass urine for 8 hours and increasing bladder pressure You have been given the following additional information: Kidney Stone W/ Colic (Electronically signed by Jolynn Randhawa MD 10/07/2016 15:10)
== END 2016-10-03 09:40 | disposition home or self-care (01) ==
LOC: ED SRH 08:08
DX: N20.1 Calculus of ureter (principal); N23 Unspecified renal colic; Z79.899 Other long term (current) drug therapy; Z88.5 Allergy status to narcotic agent